=== PATIENT | female | born 1965 | race Caucasian/White ===

== ENCOUNTER 2018-07-06 05:47 | Emergency (ER) | payer MEDICAID ==
[~2018-07-06] VITALS: Ht 160 cm; Wt 137.6 kg
[2018-07-06 05:47] VITALS: BP 168/87
[~2018-07-06 05:47] MED LIST: ASPI81CT95 PO; LISI-420 PO; METF500T PO; MIC5 PO
--- NOTE | 2018-07-06 05:56 | NUR ---
Patient ambulated to bed 7 with family. RN evaluating patient at bedside.
--- NOTE | 2018-07-06 06:00 | NUR ---
PATIENT IS A 53 Y/O FEMALE WHO PRESENTS TO THE ED C/O CHEST PAIN. PT STATES THAT IT STARTED LAST NIGHT AT 1999, REPORTED AN EPISODE OF HYPOGLYCEMIA. PT REPORTS 8/10 ACHING CHEST PAIN THAT DOES NOT RADIATE. PT DENIES CP, SOB, REPORTS NAUSEA DENIES VOMITING/DIARRHEA. PT AWAKE, ALERT, RR EVEN/UNLABORED. PT REPOSITIONED FOR COMFORT, BED IN LOWEST POSITION. ER MD DR. KATZ NOTIFIED. WILL CONTINUE TO MONITOR.
[2018-07-06] MEDS ORDERED: NITROGLYCERIN 0.4 MG TAB SL ONE (06:35)
[2018-07-06] MEDS ORDERED: ASPIRIN 325 MG TAB PO ONE (06:35)
--- NOTE | 2018-07-06 07:07 | NUR ---
Pt report given to TUSHAR DELAROSA. Transfer of care at this time.
[2018-07-06 07:08] LABS: BASOPHILS # (AUTO) 0.2 K/uL (0.00-0.22); BASOPHILS % (AUTO) 1.8 % (0.0-2.0); EOSINOPHILS # (AUTO) 0.4 K/uL (0-0.4); EOSINOPHILS % (AUTO) 4.3 % (0.0-4.0); HEMATOCRIT 35.8 % (36-48); LYMPHOCYTES # (AUTO) 2.4 K/uL (2.5-16.5); LYMPHOCYTES % (AUTO) 25.6 % (20.5-51.1); MEAN CORPUSCULAR HEMOGLOBIN 30 pg (27-31); MEAN CORPUSCULAR HGB CONC 33 g/dL (33-37); MEAN CORPUSCULAR VOLUME 88.8 fL (80-94); MONOCYTES # (AUTO) 0.6 K/uL (0.8-1.0); MONOCYTES % (AUTO) 6.2 % (1.7-9.3); NEUTROPHILS # (AUTO) 5.7 K/uL (1.8-7.7); NEUTROPHILS % (AUTO) 62.1 % (42.2-75.2); PLATELET COUNT (AUTO) 287 K/uL (140-450); RED BLOOD CELL COUNT(AUTO) 4.03 MIL/uL (4.20-5.40); RED CELL DISTRIBUTION WIDTH 15.3 % (11.6-13.7); WHITE BLOOD COUNT (AUTO) 9.2 K/uL (4.8-10.8)
[2018-07-06 07:38] LABS: ANION GAP 8.8 (8-16); CARBON DIOXIDE 26.1 mmol/L (21-32); CREATININE 0.6 mg/dL (0.6-1.3); POTASSIUM 3.9 mmol/L (3.5-5.1)
[2018-07-06 07:45] LABS: ALBUMIN 3.3 g/dL (3.4-5.0); TOTAL BILIRUBIN 0.2 mg/dL (0.0-1.0)
--- NOTE | 2018-07-06 08:00 | NUR ---
resting semi-lopez's position---holding conversation with family at bedside without s/s resp distress noted. continues to wait for dispo. labs results pending will continue to monitor and observe for pain control.
--- NOTE | 2018-07-06 08:59 | NUR ---
PT. AMBULATED TO RESTROOM WITH STEADY GAIT , RR EVEN AND UNLABORED. NO COMPLAINTS OF DIZZYNESS AT THIS TIME. WILL CONTINUE TO MONITOR.
[2018-07-06 09:17] VITALS: BP 132/52
== END 2018-07-06 09:17 | disposition home or self-care (01) ==
LOC: MED 05:47
DX: G89.29 Other chronic pain (principal); R07.89 Other chest pain; M54.5 Low back pain; E11.9 Type 2 diabetes mellitus without complications; K21.9 Gastro-esophageal reflux disease without esophagitis; I10 Essential (primary) hypertension; Z88.5 Allergy status to narcotic agent; Z79.1 Long term (current) use of non-steroidal anti-inflammatories (NSAID); Z79.899 Other long term (current) drug therapy
CPT/HCPCS: 36415; 71045; 80053; 82550; 82553; 82948; 83690; 84484; 85025; 93005; 99285; Q0092

== ENCOUNTER 2018-10-24 15:23 | Emergency (ER) | payer MEDICAID ==
[~2018-10-24] VITALS: Ht 160 cm; Wt 131.1 kg
[2018-10-24 15:30] VITALS: BP 144/77
[2018-10-24] MEDS: ACETAMINOPHEN 325 MG TAB PO ONE (15:57)
[2018-10-24 17:13] VITALS: BP 112/60
== END 2018-10-24 17:13 | disposition home or self-care (01) ==
LOC: MED 15:23
DX: S90.32XA Contusion of left foot, initial encounter (principal); E11.9 Type 2 diabetes mellitus without complications; K21.9 Gastro-esophageal reflux disease without esophagitis; I10 Essential (primary) hypertension; M19.90 Unspecified osteoarthritis, unspecified site; Z90.49 Acquired absence of other specified parts of digestive tract; Z88.5 Allergy status to narcotic agent; Z79.899 Other long term (current) drug therapy; Z79.82 Long term (current) use of aspirin; W20.8XXA Other cause of strike by thrown, projected or falling object, initial encounter; Y93.89 Activity, other specified; Y92.89 Other specified places as the place of occurrence of the external cause; Y99.8 Other external cause status
CPT/HCPCS: 73630; 99283; Q0092

== ENCOUNTER 2020-01-28 14:02 | Emergency (ER) | payer MEDICAID ==
[~2020-01-28] VITALS: Ht 160 cm; Wt 133.8 kg
[2020-01-28 14:07] VITALS: BP 157/97
--- NOTE | 2020-01-28 14:21 | NUR ---
C/O LEFT FOOT PAIN S/P FALL WHILE WALKING PT STATES X 20 MINUTES AGO. DENIES LOC. PMH: DM, HTN, HIGH CHOLESTEROL. PATIENT STATES PAIN OF 10/10 AT THIS TIME. PATIENT POSITIONED FOR COMFORT; HOB ELEVATED; BEDRAILS UP X1; BED DOWN. ER MD MADE AWARE OF PT STATUS.
[2020-01-28] MEDS ORDERED: KETOROLAC 30 MG/ML VIAL IM ONE (14:45)
--- NOTE | 2020-01-28 15:31 | NUR ---
SHORT LEG POSTERIOR SPLINT PLACED ON PT'S LEFT FOOT, AND GIVEN ONE ON ONE INSTRUCTION ON PROPER CRUTCH USE. PT STATES SHE HAS USED CRUTCHES BEFORE IN THE PAST.
[2020-01-28 15:37] VITALS: BP 157/97
--- NOTE | 2020-01-28 15:37 | NUR ---
Patient discharged with v/s stable. Written and verbal after care instructions given and explained. Patient alert, oriented and verbalized understanding of instructions. Ambulatory with steady gait. All questions addressed prior to discharge. ID band removed. Patient advised to follow up with PMD. Rx of [place] 5mg and Ibuprofen 600mg was given. Patient educated on indication of medication including possible reaction and side effects. Opportunity to ask questions provided and answered.
== END 2020-01-28 15:37 | disposition home or self-care (01) ==
LOC: MED 14:02
DX: S92.351A Displaced fracture of fifth metatarsal bone, right foot, initial encounter for closed fracture (principal); S60.416A Abrasion of right little finger, initial encounter; E11.9 Type 2 diabetes mellitus without complications; K21.9 Gastro-esophageal reflux disease without esophagitis; I10 Essential (primary) hypertension; Z79.82 Long term (current) use of aspirin; Z79.84 Long term (current) use of oral hypoglycemic drugs; Z79.899 Other long term (current) drug therapy; Z88.5 Allergy status to narcotic agent; W23.0XXA Caught, crushed, jammed, or pinched between moving objects, initial encounter; Y93.89 Activity, other specified; Y92.89 Other specified places as the place of occurrence of the external cause; Y99.8 Other external cause status
CPT/HCPCS: 29515; 73130; 73630; 96372; 99284; J1885